=== PATIENT | male | born 1995 | race Caucasian/White ===

== ENCOUNTER 2017-11-27 08:24 | Emergency (ER) | payer OTHER ==
[~2017-11-27] VITALS: Ht 188 cm; Wt 121.1 kg
--- NOTE | ~2017-11-27 | EKG ---
[place] [address] [facility] [place] [address] ELECTROCARDIOGRAM REPORT Name: CHRIS BARON Room [facility]: [facility]ENTERArg[facility]#: [id number] Admission: 11/27/17 Attend Phys: Discharge: 11/27/17 Date of : [birth year] Report #: [id number] THIS REPORT FOR: //name// [facility] ED Test Date: 2017-11-27 Test Time: 08:36:43 Pat Name: CHRIS BARON Department: Room: Gender: Food Service Counter Clerk: AJ : 1995 Requested By: Theresa Mosquera Order Number: [id number] MD: Bruce Chan Measurements Intervals [place] Rate: 62 P: 22 MS: 148 QRS: 4 QRSD: 109 T: 9 QT: 411 QTc: 418 Interpretive Statements Sinus rhythm Normal tracing No previous ECG available for comparison Electronically Signed On 11-27-2017 19:23:15 CDT by Bruce Chan [email or web address] <ELECTRONICALLY SIGNED> By: Bruce Chan MD, [facility] 11/27/17 1923 [id number] Bruce Chan MD, FACC /EPI
[2017-11-27] MEDS ORDERED: CELEXA20 MG PO (08:52)
[2017-11-27 09:12] LABS: ABSOLUTE NEUTROPHILS 5.4 thou/uL (1.4-8.2); BASOPHILS 0.3 % (0.0-2.0); EOSINOPHILS 0.7 % (0.0-3.0); HEMATOCRIT 46.8 % (42.0-52.0); HEMOGLOBIN 15.9 gm/dL (14.0-18.0); LYMPHOCYTES 15.9 % (24.0-44.0); MCH 30.8 pg (26.0-34.0); MCV 90.6 fL (80.0-100.0); MONOCYTES 6.9 % (1.0-8.0); PLATELET COUNT 184 thou/uL (150-400); POLYS 76.2 % (36.0-66.0); RBC 5.17 mil/uL (4.50-6.00); RDW 12.4 % (10.5-14.5); WBC 7.1 thou/uL (4.0-11.0)
[2017-11-27 09:19] LABS: CALCIUM 9.5 mg/dL (8.5-10.1); CREATININE 1.2 mg/dL (0.7-1.3); POTASSIUM 4.1 mmol/L (3.5-5.1); URINE BILIRUBIN NEGATIVE (Negative); URINE BLOOD NEGATIVE (Negative); URINE CLARITY CLEAR; URINE COLOR YELLOW; URINE GLUCOSE-RANDOM* NEGATIVE (Negative); URINE KETONES NEGATIVE (Negative); URINE LEUKOCYTES NEGATIVE (Negative); URINE NITRITE NEGATIVE (Negative); URINE PROTEIN (DIPSTICK) NEGATIVE (Negative); URINE SPECIFIC GRAVITY 1.025 (1.005-1.035); URINE UROBILINOGEN 0.2 E.U./dl (0.2-1.0)
[2017-11-27 09:25] LABS: ALBUMIN 4.3 g/dL (3.4-5.0); DIRECT BILIRUBIN 0.2 mg/dL (<0.1-0.3); TOTAL BILIRUBIN 0.7 mg/dL (<0.1-1.0); TOTAL PROTEIN 7.7 g/dL (6.4-8.2)
[2017-11-27] MEDS ORDERED: ZOFRAN ODT4 MG PO (10:12)
== END 2017-11-27 10:59 | disposition home or self-care (01) ==
LOC: ER 08:24
PROVIDERS: Emergency Medicine
DX: I95.1 Orthostatic hypotension (principal); R00.2 Palpitations; R11.0 Nausea